=== PATIENT | female | born 1935 | race Two or more races ===

== ENCOUNTER → 2022-11-06 | Outpatient (CLI) | payer MEDICARE | END | disposition home or self-care (01) | LOC: XYW 09:34 | PROVIDERS: ATTEND Internal Medicine | DX: I08.8 Other rheumatic multiple valve diseases (principal); I48.21 Permanent atrial fibrillation | CPT/HCPCS: 93306 ==

== ENCOUNTER → 2022-11-27 | Outpatient (CLI) | payer MEDICARE | END | disposition home or self-care (01) | LOC: EDUNIT# 09:00 → XYW 13:49 | PROVIDERS: ATTEND Internal Medicine | DX: I65.22 Occlusion and stenosis of left carotid artery (principal); R42 Dizziness and giddiness | CPT/HCPCS: 93886 ==

== ENCOUNTER → 2023-01-19 | Outpatient (CLI) | payer MEDICARE ==
[~2023-01-19] VITALS: Ht 157.5 cm; Wt 61.2 kg
[~2023-01-19] MED LIST: ADENOSINE 51 MG in GIVE UN-DILUTED 0 ML IV STA
[2023-01-19 09:59] VITALS: BP 133/88
== END | disposition home or self-care (01) ==
LOC: XYW 08:11
PROVIDERS: ATTEND Internal Medicine
DX: R07.89 Other chest pain (principal); I48.21 Permanent atrial fibrillation; R04.0 Epistaxis; E78.5 Hyperlipidemia, unspecified; Z95.0 Presence of cardiac pacemaker
CPT/HCPCS: 78452; 93017; A9500; J0153